=== PATIENT | male | born 1975 | race Two or more races ===

== ENCOUNTER → 2020-01-13 | Outpatient (CLI) | payer OTHER ==
[2020-01-13 10:04] LABS: BASO % 0 % (0-3); EOS # 0.1 x10^3/uL (0.0-0.7); EOS % 2 % (0-3); HEMATOCRIT 37.6 % (39.0-53.0); HEMOGLOBIN 12.5 g/dL (13.0-17.5); LYMPH # 2.4 x10^3/uL (1.0-4.8); LYMPH % 25 % (24-48); MEAN CORPUSCULAR HEMOGLOBIN 31 pg (25-35); MEAN CORPUSCULAR HGB CONC 33 g/dL (31-37); MEAN CORPUSCULAR VOLUME 93 fL (79-100); MONO % 10 % (0-9); NEUT # 6.1 x10^3uL (1.8-7.7); NEUT % 64 % (31-73); PLATELET COUNT 301 x10^3/uL (140-400); RED BLOOD COUNT 4.03 x10^6/uL (4.30-5.70); RED CELL DISTRIBUTION WIDTH 12.8 % (11.5-14.5); WHITE BLOOD COUNT 9.6 x10^3/uL (4.0-11.0)
[2020-01-13 10:16] LABS: ALBUMIN 3.3 g/dL (3.4-5.0); ALBUMIN/GLOBULIN RATIO 0.7 (1.0-1.7); ALK PHOS 75 U/L (46-116); ALT (SGPT) 19 U/L (16-63); ANION GAP 10 (6-14); AST (SGOT) 15 U/L (15-37); BLOOD UREA NITROGEN 12 mg/dL (8-26); BUN/CREATININE RATIO 11 (6-20); C REACTIVE PROTEIN 91.7 mg/L (0-3.3); CALCIUM 8.8 mg/dL (8.5-10.1); CARBON DIOXIDE 27 mmol/L (21-32); CHLORIDE 105 mmol/L (98-107); CREATININE 1.1 mg/dL (0.7-1.3); GAMMA GLUTAMYL TRANSPEPTIDASE 17 U/L (10-85); GFR 73.1; GLUCOSE 74 mg/dL (70-99); LACTATE DEHYDROGENASE 197 U/L (85-227); PHOSPHORUS 2.6 mg/dL (2.6-4.7); POTASSIUM 4.1 mmol/L (3.5-5.1); SODIUM 142 mmol/L (136-145); TOTAL BILIRUBIN 0.4 mg/dL (0.2-1.0); TOTAL PROTEIN 7.8 g/dL (6.4-8.2); URIC ACID 3.9 mg/dL (3.5-7.2); VANC TR 6.9 mcg/mL (10.0-20.0)
== END | disposition home or self-care (01) ==
LOC: SPEC 09:36 → EEVIPCON 09:36
PROVIDERS: ATTEND Family Medicine
DX: L99 Other disorders of skin and subcutaneous tissue in diseases classified elsewhere (principal)
CPT/HCPCS: 36415; 80053; 80202; 82977; 83615; 84100; 84550; 85025; 86140